=== PATIENT | female | born 1945 | race Caucasian/White ===

== ENCOUNTER 2018-02-15 11:56 | Observation (INO) | payer MEDICARE, BC ==
[2018-02-15 12:57] LABS: AUTOMATED NEUTROPHIL # 2.8 TH/MM3 (1.8-7.7); BASOPHIL % 1.1 % (0.0-2.0); EOSINOPHIL # 0.1 TH/MM3 (0-0.4); EOSINOPHIL % 2.4 % (0.0-4.0); HEMO FLAGS DIFF FINAL; HEMOGLOBIN 14.7 GM/DL (11.6-15.3); LYMPH % 21.7 % (9.0-44.0); LYMPHOCYTE # 0.9 TH/MM3 (1.0-4.8); MEAN CELL VOLUME 96.6 FL (80.0-100.0); MEAN CORPUSCULAR HEMOGLOBIN 32.3 PG (27.0-34.0); MEAN CORPUSCULAR HGB CONC 33.4 % (32.0-36.0); MEAN PLATELET VOLUME 6.9 FL (7.0-11.0); MONOCYTE # 0.2 TH/MM3 (0-0.9); NEUT % 68.8 % (16.0-70.0); PLATELET COUNT 289 TH/MM3 (150-450); RED BLOOD COUNT 4.56 MIL/MM3 (4.00-5.30); RED CELL DISTRIBUTION WIDTH 12.7 % (11.6-17.2)
[2018-02-15 13:07] LABS: CHLORIDE 100 MEQ/L (98-107); POTASSIUM 3.8 MEQ/L (3.5-5.1); SODIUM (NA) 139 MEQ/L (136-145)
[2018-02-15 13:10] LABS: ALBUMIN 3.1 GM/DL (3.4-5.0); ANION GAP 9 MEQ/L (5-15); BICARBONATE 29.9 MEQ/L (21.0-32.0); CALCIUM 9.5 MG/DL (8.5-10.1); GLUCOSE,RANDOM 82 MG/DL (74-106)
[2018-02-15 13:11] LABS: BLOOD UREA NITROGEN 16 MG/DL (7-18)
[2018-02-15 13:12] LABS: APTT (PATIENT) 24.9 SEC (24.3-30.1); PROTHROMBIN TIME - PATIENT 9.8 SEC (9.8-11.6)
[2018-02-15 13:13] LABS: ALT (GPT) 19 U/L (10-53); AST (GOT) 26 U/L (15-37)
[2018-02-15 13:14] LABS: CREATININE 0.69 MG/DL (0.50-1.00); GLOMERULAR FILTRATION RATE 83 ML/MIN (>89)
[2018-02-15 13:15] LABS: TOTAL BILIRUBIN ADULT 0.6 MG/DL (0.2-1.0); TOTAL PROTEIN 7.7 GM/DL (6.4-8.2)
[2018-02-15 13:16] LABS: ALKALINE PHOSPHATASE 90 U/L (45-117)
[2018-02-15 13:22] LABS: B-TYPE NATRIURETIC PEPTIDE 90 PG/ML (0-100)
[2018-02-15] MEDS: SODIUM CHLOR 0.9% 1000 ML INJ 1,000 ML IV ×2 (13:24→18:10)
[2018-02-15] MEDS: ONDANSETRON HCL 4 MG/2 ML VIAL IV PUSH (13:24)
[2018-02-15] MEDS: IOHEXOL 350 MG/ML 10 ML VIAL (for RAD DIAG) IVCONTRAST (13:51)
[2018-02-15 14:37] LABS: BILIRUBIN, URINE NEG (NEG); BLOOD, URINE NEG (NEG); GLUCOSE,URINE NEG (NEG); KETONE, URINE 15 mg/dL (NEG); NITRITE,URINE NEG (NEG); PH, URINE 5.5 (5.0-8.5); URINE COLOR YELLOW (YELLW/STRAW); URINE LEUKOCYTE ESTERASE NEG (NEG)
[2018-02-15 14:43] LABS: COMMENT (UR) CULT NOT INDICATED; CULTURE IF INDICATED CULT NOT INDICATED; RBC, URINE 0-3 /hpf (0-3); SQUAMOUS EPITHELIAL CELL URINE 0-5 /hpf (0-5); WBC, URINE 0-2 /hpf (0-5)
[2018-02-15] MEDS: MORPHINE SULFATE 4 MG/ML INJ IV PUSH (14:53)
[2018-02-15] MEDS: PIPERACIL-TAZO 3.375 GM PREMIX 50 ML IV (14:53)
[2018-02-15] MEDS ORDERED: ACETAMINOPHEN 325 MG TAB PO (16:45)
[2018-02-15] MEDS ORDERED: SODIUM CHLORIDE 0.9% FLUSH 10 ML FLUSH IV FLUSH (16:45)
[2018-02-15] MEDS ORDERED: NALOXONE HCL 0.4 MG/ML AMP IV PUSH (16:45)
[2018-02-15] MEDS ORDERED: MORPHINE SULFATE 4 MG/ML INJ IV PUSH (17:00)
[2018-02-15] MEDS: metroNIDAZOLE 500 MG INJ 100 ML IV (20:42)
[2018-02-15] MEDS: DOCUSATE SODIUM 50 MG/SENNA 8.6 MG TAB PO (20:42)
[2018-02-15] MEDS: SODIUM CHLORIDE 0.9% FLUSH 10 ML FLUSH IV FLUSH (20:42)
[2018-02-15] MEDS: CIPROFLOXACIN 400 MG PREMIX 200 ML IV (20:42)
[2018-02-16] MEDS: metroNIDAZOLE 500 MG INJ 100 ML IV ×3 (04:18→20:04)
[2018-02-16 07:58] LABS: AUTOMATED NEUTROPHIL # 7.4 TH/MM3 (1.8-7.7); BASOPHIL % 0.1 % (0.0-2.0); EOSINOPHIL # 0.1 TH/MM3 (0-0.4); EOSINOPHIL % 1.5 % (0.0-4.0); HEMATOCRIT 41.4 % (35.0-46.0); LYMPH % 15.2 % (9.0-44.0); LYMPHOCYTE # 1.4 TH/MM3 (1.0-4.8); MEAN CELL VOLUME 96.6 FL (80.0-100.0); MEAN CORPUSCULAR HEMOGLOBIN 32.7 PG (27.0-34.0); MEAN CORPUSCULAR HGB CONC 33.8 % (32.0-36.0); MEAN PLATELET VOLUME 7.4 FL (7.0-11.0); MONO % 6.5 % (0.0-8.0); MONOCYTE # 0.6 TH/MM3 (0-0.9); NEUT % 76.7 % (16.0-70.0); PLATELET COUNT 297 TH/MM3 (150-450); RED BLOOD COUNT 4.28 MIL/MM3 (4.00-5.30); WHITE BLOOD COUNT 9.5 TH/MM3 (4.0-11.0)
[2018-02-16 08:03] LABS: HEMO FLAGS DIFF FINAL
[2018-02-16 08:11] LABS: CHLORIDE 101 MEQ/L (98-107); POTASSIUM 3.4 MEQ/L (3.5-5.1); SODIUM (NA) 138 MEQ/L (136-145)
[2018-02-16 08:15] LABS: ANION GAP 7 MEQ/L (5-15); BICARBONATE 30.2 MEQ/L (21.0-32.0); BLOOD UREA NITROGEN 10 MG/DL (7-18); GLUCOSE,RANDOM 101 MG/DL (74-106)
[2018-02-16 08:18] LABS: CREATININE 0.82 MG/DL (0.50-1.00); GLOMERULAR FILTRATION RATE 68 ML/MIN (>89)
[2018-02-16] MEDS: CIPROFLOXACIN 400 MG PREMIX 200 ML IV ×2 (08:23→21:14)
[2018-02-16] MEDS: ONDANSETRON HCL 4 MG/2 ML VIAL IV PUSH (08:23)
[2018-02-16] MEDS: SODIUM CHLORIDE 0.9% FLUSH 10 ML FLUSH IV FLUSH ×2 (08:29→20:16)
[2018-02-16] MEDS: DOCUSATE SODIUM 50 MG/SENNA 8.6 MG TAB PO ×2 (08:47→20:15)
[2018-02-16] MEDS: ATORVASTATIN 40 MG TAB PO (08:47)
[2018-02-16] MEDS: SERTRALINE HCL 50 MG TAB PO (08:47)
[2018-02-16] MEDS: POTASSIUM CHLORIDE 25 MEQ EFFERVESCENT TAB PO (09:53)
[2018-02-16] MEDS ORDERED: MAGNESIUM HYDROXIDE SUSP 30 ML CUP PO (18:30)
[2018-02-16] MEDS: MAGNESIUM HYDROXIDE SUSP 30 ML CUP PO (20:02)
[2018-02-17] MEDS: metroNIDAZOLE 500 MG INJ 100 ML IV (04:44)
[2018-02-17] MEDS: ACETAMINOPHEN 325 MG TAB PO (04:59)
[2018-02-17] MEDS: DOCUSATE SODIUM 50 MG/SENNA 8.6 MG TAB PO (08:05)
[2018-02-17] MEDS: SERTRALINE HCL 50 MG TAB PO (08:05)
[2018-02-17] MEDS: ATORVASTATIN 40 MG TAB PO (08:06)
[2018-02-17] MEDS: SODIUM CHLORIDE 0.9% FLUSH 10 ML FLUSH IV FLUSH (08:06)
[2018-02-17] MEDS: CIPROFLOXACIN 400 MG PREMIX 200 ML IV (08:06)
== END 2018-02-17 12:51 | disposition home or self-care (01) ==
LOC: PHED 11:56 → PHEDA 16:18 → PH3A 17:06
DX: K57.92 Diverticulitis of intestine, part unspecified, without perforation or abscess without bleeding (principal); E87.6 Hypokalemia; I10 Essential (primary) hypertension; E78.5 Hyperlipidemia, unspecified; F41.9 Anxiety disorder, unspecified; F32.9 Major depressive disorder, single episode, unspecified; Z79.899 Other long term (current) drug therapy; Z85.038 Personal history of other malignant neoplasm of large intestine
CPT/HCPCS: 71045; 74177; 80048; 80053; 81001; 83880; 85025; 85610; 85730; 96361; 96365; 96366; 96368; 96375; 96376; 99285-25